=== PATIENT | male | born 1985 | race Caucasian/White ===

== ENCOUNTER 2016-06-05 20:53 | Emergency (ER) | payer MEDICAID ==
[~2016-06-05] VITALS: Ht 154.9 cm; Wt 66.5 kg
[2016-06-05 21:14] VITALS: Ht 154.9 cm; Wt 66.5 kg
--- NOTE | 2016-06-05 22:26 | ERD ---
ER Documentation Chief Complaint Date/Time DATE: 06/05/16 TIME: 22:21 Chief Complaint mid chest pain and anxiety for 15 days HPI 30-year-old male presents here in emergency department for complaints of midchest pain started 2 weeks ago, and has been having it on and off, patient describes the pain as sharp pain, 4/10 scale, not better or worse with anything. Patient also is feeling anxious. Patient denies any palpitations or irregular heartbeat. Patient denies any acid reflux. Patient denies any dyspnea on exertion or dyspnea on lying down. Patient denies any cough, patient denies any numbness or tingling. Patient denies any fever or chills. ROS All systems reviewed and are negative except as per history of present illness. Medications Home Meds Reported Medications [none] Unknown Strength No Conflict Check 06/05/16 Allergies Allergies: Coded Allergies: No Known Allergy (Unverified , 06/05/16) PMhx/Soc Medical and Surgical Hx: pt denies Medical Hx, pt denies Surgical Hx Hx Alcohol Use: No Hx Substance Use: No Hx Tobacco Use: No FmHx Family History: No coronary disease, No diabetes, No other Physical Exam Vitals Vital Signs Date Time Temp Pulse Resp B/P Pulse Ox O2 Delivery O2 Flow Rate FiO2 06/05/16 21:14 99.0 76 20 128/71 98 Physical Exam GENERAL: The patient is well developed and appropriate for usual state of health, in no apparent distress. CHEST: Clear to auscultation bilaterally. There are no rales, wheezes or rhonchi. HEART: Regular rate and rhythm. No murmurs, clicks, rubs or gallops. No S3 or S4. ABDOMEN: Soft, nontender and nondistended. Good bowel sounds. No rebound or guarding. No gross peritonitis. No gross organomegaly or masses. No Lynn sign or McBurney point tenderness. BACK: No midline or flank tenderness. EXTREMITIES: Equal pulses bilaterally. There is no peripheral clubbing, cyanosis or edema. No focal swelling or erythema. Full range of motion. Grossly neurovascularly intact. NEURO: Alert and oriented. Cranial nerves 2-12 intact. Motor strength in all 4 extremities with 5/5 strength. Sensation grossly intact. Normal speech and gait. SKIN: There is no apparent rash or petechia. The skin is warm and dry. HEMATOLOGIC AND LYMPHATIC: There is no evidence of excessive bruising or lymphedema. No gross cervical, axillary, or inguinal lymphadenopathy. Results 24 hrs EKG was done, read by me and is normal sinus rhythm at a rate of 63 bpm, normal axis, there is no ST changes or changes in the EKG that indicates any cardiac emergencies at this time. Patient's EKG was also reviewed by Dr. Garcia. Impression: no acute findings on EKG PROCEDURE: XR Chest. CLINICAL INDICATION: Chest pain TECHNIQUE: Single frontal view of the chest. COMPARISON: No priorchest radiograph. FINDINGS: The lungs are clear. No pleural effusion or pneumothorax. The cardiomediastinal silhouette is unremarkable. No acute osseous abnormalities. IMPRESSION: No acute abnormalities. RPTAT: AADD .Ronald Dick MD, MD Date Time Electronically viewed and signed by .Ronald Dick MD, on 06/05/2016 22:49 .B/ CC: CLARICE PAUL DESIGN ENG Procedures/MDM Medical Decision Making: Patient's chest pain was likely is consistent with possible musculoskeletal pain, possible anxiety. Further evaluation by the dj instructor specialist for further evaluation of symptoms. There is low suspicion for cardiopulmonary emergencies at this time. Patient has low risk factors. EKG is normal, there is no changes in the EKG that indicates cardiac emergencies. Chest X-ray does not show cardiopulmonary emergencies at this time. There is low suspicion for aortic aneurysm, myocardial infarction, pneumothorax, pleural effusion, pulmonary embolism, or any other cardiopulmonary emergencies at this time. Departure Diagnosis: Primary Impression: Atypical chest pain Additional Impression: Anxiety Condition: Stable Patient Instructions: Anxiety Reaction, Chest Pain, Noncardiac CLARICE PAUL NP Jun 05, 2016 22:26
--- NOTE | 2016-06-05 22:49 | RADRPT ---
PROCEDURE: XR Chest. CLINICAL INDICATION: Chest pain TECHNIQUE: Single frontal view of the chest. COMPARISON: No priorchest radiograph. FINDINGS: The lungs are clear. No pleural effusion or pneumothorax. The cardiomediastinal silhouette is unremarkable. No acute osseous abnormalities. IMPRESSION: No acute abnormalities. RPTAT: AADD .Ronald Dick MD, MD Date Time Electronically viewed and signed by .Ronald Dick MD, MD on 06/05/2016 22:49 .B/
== END 2016-06-05 23:33 | disposition home or self-care (01) ==
LOC: FTE 20:53
DX: R07.89 Other chest pain (principal)
CPT/HCPCS: 71010; 93005; Z7502